=== PATIENT | male | born 1985 | race Caucasian/White ===

== ENCOUNTER → 2022-02-05 | Outpatient (CLI) | payer BC ==
--- NOTE | 2022-02-05 10:08 | RAD ---
EXAMINATION: Left ankle and left foot radiographs. VIEWS: 3 views of the left ankle and 3 views of the left foot. COMPARISON: None. INDICATION:36 years, Male, twisted left foot and ankle while running. FINDINGS: No acute fracture, dislocation or subluxation. Asymmetric minimal widening of the medial ankle mortis e measures 5 mm. Soft tissue swelling about the lateral malleolus. IMPRESSION: 1. No acute fracture or dislocation of the left ankle or foot. 2. Asymmetric minimal widening of the medial ankle mortise, findings may represent ligamental injury . Electronically signed by: Manuel Leos MD (02/05/2022 10:06 AM) [facility]
== END ==
LOC: DXRAD 09:43
PROVIDERS: ATTEND Nurse Practitioner Family
DX: S99.912A Unspecified injury of left ankle, initial encounter (principal); M79.89 Other specified soft tissue disorders; X50.1XXA Overexertion from prolonged static or awkward postures, initial encounter; Y93.02 Activity, running; Y92.89 Other specified places as the place of occurrence of the external cause; Y99.8 Other external cause status
CPT/HCPCS: 73610; 73630